=== PATIENT | female | born 1955 | race Hispanic/Latino ===

== ENCOUNTER → 2023-02-09 | Outpatient (CLI) | payer MEDICARE | LOC: US 12:22 | PROVIDERS: ATTEND Internal Medicine Gastroenterology | DX: R10.13 Epigastric pain (principal); R10.11 Right upper quadrant pain; K57.30 Diverticulosis of large intestine without perforation or abscess without bleeding; Z68.22 Body mass index [BMI] 22.0-22.9, adult | CPT/HCPCS: 76700 ==

== ENCOUNTER → 2024-05-06 | Day surgery (SDC) | payer MEDICARE, OTHER ==
[~2024-05-06] MED LIST: ACETAMINOPHEN 1000 MG/100 ML IV ONE; ADDERALL 10 MG10 MG PO; ALENDRONATE SOD70 MG PO; AMITRIPTYLINE H25 MG PO; ARAVA20 MG PO; BUPIVACAINE 0.25% 30ML SDV ONE; CIMZIA400 MG/2 M INJ; ESMOLOL HCL 100MG/10ML 10 MG/ML VIAL ONE; FENTANYL CITRATE/PF 100MCG/2 ML INJ ONE; GABAPENTIN300 MG PO; LIDOCAINE HCL 2% LOCAL INJ 5 ML SDV VIAL INJ ONE; LIPITOR10 MG PO; METFORMIN HCL500 MG PO; METOCLOPRAMIDE HCL 10 MG/2ML VIAL ONE; NEXIUM40 MG PO; ONDANSETRON HCL INJ 2MG/ML 2ML 2 MG/ML VIAL ONE; PANTOPRAZOLE SO40 MG PO; PROPOFOL IV EMULSION 10 MG/ML 20 ML VIAL ONE; REGLAN10 MG PO; ROCURONIUM BROMIDE 10 MG/ML 5ML VIAL IV ONE; SEVOFLURANE INHAL SOLN 250 ML PEN BTL ONE; SUCCINYLCHOLINE CHLORIDE 20 MG/ML 10ML VIAL ONE; SUGAMMADEX SODIUM 200 MG/2 ML VIAL IV ONE; TRULICITY1.5 MG/0.5 SC; ZESTRIL10 MG PO
[2024-05-06] MEDS: LACTATED RINGER'S 1,000 ML ONE (06:35)
[2024-05-06] MEDS: ONDANSETRON HCL INJ 2MG/ML 2ML 2 MG/ML VIAL ONE (09:40)
[2024-05-06] MEDS: HYDROCODONE/APAP 5MG-325MG TAB ONE (09:50)
[2024-05-06 10:00] VITALS: TEMP 97.1
[2024-05-06 10:33] VITALS: BP 140/71; PULSE 64; RESP 18; O2SAT 99
== END | disposition home or self-care (01) ==
LOC: OR 05:36
PROVIDERS: ATTEND Surgery
DX: K44.9 Diaphragmatic hernia without obstruction or gangrene (principal); K21.00 Gastro-esophageal reflux disease with esophagitis, without bleeding; K66.0 Peritoneal adhesions (postprocedural) (postinfection); I10 Essential (primary) hypertension; I45.10 Unspecified right bundle-branch block; F17.210 Nicotine dependence, cigarettes, uncomplicated; E78.00 Pure hypercholesterolemia, unspecified; E11.9 Type 2 diabetes mellitus without complications; Z79.85 Long-term (current) use of injectable non-insulin antidiabetic drugs; Z79.84 Long term (current) use of oral hypoglycemic drugs; M81.0 Age-related osteoporosis without current pathological fracture; M19.91 Primary osteoarthritis, unspecified site; M06.9 Rheumatoid arthritis, unspecified; F90.9 Attention-deficit hyperactivity disorder, unspecified type; K57.90 Diverticulosis of intestine, part unspecified, without perforation or abscess without bleeding; Z79.899 Other long term (current) drug therapy; Z98.84 Bariatric surgery status
CPT/HCPCS: 43281; 49329; 71046; 93005; J0131; J0330; J0690; J2001; J2405; J2704; J2765; J3010; J7121